=== PATIENT | female | born 1995 | race Caucasian/White ===

== ENCOUNTER 2017-01-24 13:10 | Emergency (ER) | payer OTHER ==
--- NOTE | 2017-01-24 14:50 | DIAGNOSTIC IMAGING REPORT ---
PROCEDURE: CT ABD/PELVIS WITH CONTRAST CLINICAL INDICATION: Right lower quadrant pain x 2 days. TECHNIQUE: 125 ml of Isovue 300 were injected intravenously and axial images were obtained of the entire abdomen and pelvis with sagittal and coronal reformations. COMPARISON: None. FINDINGS: ABDOMEN: Lung base are clear. Heart size is normal. Liver, gallbladder, pancreas, spleen, adrenal glands and right kidney are normal. Small left renal cysts. Normal abdominal aorta. Nonspecific bowel gas pattern. PELVIS: Normal appendix. IUD in place. Normal adnexa and bladder. Trace free fluid, physiologic. Bilateral L5 spondylolysis and grade 1 L5-S1 anterolisthesis. IMPRESSION: 1. Normal appendix 2. IUD in place 3. Trace free fluid the pelvis which may be the result of an occult ruptured ovarian follicle 4. Results discussed with Dr. Posada. All CT scans at this facility use dose modulation, iterative reconstruction, and/or weight-based dosing when appropriate to reduce radiation dose to as low as reasonably achievable.
--- NOTE | 2017-01-24 14:57 | ED ORDER SUMMARY ---
..... Patient: SANAZ SUMNER OrderSheet [facility] VisitID: [id number] [address] [place] [address] 22y, F Registration Date/Time: 01/24/2017 ORDER SHEET Weight: 68.0 kg (stated) Allergies: Tramadol GENERAL ORDERS: CT Abd/Pel w Cont (No) (N/A) (RLQ pain X 2 days) Urgent (13:33 01/24/2017 JCoates) (Ack 13:41 Raymundonandez) (17:05 KKnebel R.N.) CBC w Diff Urgent (13:35 01/24/2017 JCoates) (Ack 13:41 Raymundonandez) (13:55 KKnebel R.N.) CMP Urgent (13:35 01/24/2017 JCoates) (Ack 13:41 Raymundonandez) (13:55 KKnebel R.N.) Urine Urgent (13:35 01/24/2017 JCoates) (Ack 13:41 Raymundonandez) (13:55 KKnebel R.N.) Urine Drug Screen Urgent (13:35 01/24/2017 JCoates) (Ack 13:41 OHyumikonandez) (13:55 KKnebel R.N.) UA-Culture if indicated Urgent (13:35 01/24/2017 JCoates) (Ack 13:41 Raymundonandez) (13:55 KKnebel R.N.) NPO (13:35 01/24/2017 JCoates) (Ack 13:45 Raymundonandez) (13:55 KKnebel R.N.) MEDICATION ORDERS: IV FLUIDS: IV NS with Normal Saline 1 Liter: initial bolus 1000 mL (1000 mL/hr), then 1000 mL/hr for X1 (NOW) (13:34 01/24/2017 JCoates) (13:56 KKnebel R.N.) Zofran IV 8 mg (NOW) (13:34 01/24/2017 JCoates) (13:56 KKnebel R.N.) Dilaudid IV 0.5 mg (NOW) (13:35 01/24/2017 JCoates) (13:56 KKnebel R.N.) ORDER SHEET NOTES: [Electronically signed by Yumiko Gray R.N. (17:01/24/2017)] [Electronically signed by Uli Posada (17:01/24/2017)] [Electronically locked/signed by Yumiko Gray R.N. (17:01/24/2017)]
--- NOTE | 2017-01-24 14:57 | ED NURSING NOTES ---
Clinical Report - Nurses [facility] [address] [place] [address] 01/24/2017 13:12 Patient: SANAZ SUMNER TRIAGE Triage time 13:Jan 24 2017. Acuity: LEVEL 3. Chief Complaint: ABDOMINAL PAIN. Alert. No acute distress. SEPSIS SCREEN: Sepsis Screen. Negative (no infection suspected/documented). WILLIAN COMA SCORE: Willian Coma Scale: 15- eyes open spontaneously (4); best verbal response- oriented x 4 (5); best motor response- obeys commands (6). --13:34 Yumiko Gray R.N. 13:29 01/24/17. BP: 119/86. HR: 73. RR: 12. O2 saturation: 96%. Temp: 98.1 F. Pain level now: 03/17. --13:34 Yumiko Gray R.N. Weight: 68 kg stated. Height/Length: 67 inches Per Patient. BMI: 23.5. --13:32 Yumiko Gray R.N. Medications Gabapentin Oral. --13:30 Yumiko Gray R.N. Medication/allergy information source: the patient. --13:34 Yumiko Gray R.N. Allergies Tramadol. --13:32 Yumiko Gray R.N. History Arrived by private vehicle. Historian: patient. Onset. (about 2 days ago). She has had nausea, vomiting and diarrhea. Treatment LAST SAWYER: None. PAST MEDICAL HX: Immunizations: up-to-date. Last normal menstrual period- December 30 2016. SOCIAL HX: Never smoker. Occasional alcohol use. No drug use. No recent travel. No infectious disease exposure. No known contact with a sick individual. SELF HARM ASSESSMENT: A self harm assessment was performed. The patient answered "no" to the question "Do you have thoughts of harming or killing yourself?". FALL RISK ASSESSMENT: Fall risk assessment completed. No fall risk identified. NUTRITIONAL RISK ASSESSMENT: The nutritional risk assessment revealed no deficiencies. FUNCTIONAL ASSESSMENT: Functional assessment: no impairments noted. LEARNING NEEDS ASSESSMENT: The learning needs assessment revealed no barriers. ABUSE ASSESSMENT: Abuse assessment: The patient was asked "Do you feel safe in your home?". SKIN INTEGRITY ASSESSMENT: Skin integrity risk assessment completed. No skin integrity risk identified. --13:34 Yumiko Gray R.N. PROBLEMS: Back Pain. --13:32 Yumiko Gray R.N. Interventions ID and allergy band on patient. To room. --13:34 Yumiko Gray R.N. PHYSICAL ASSESSMENT GENERAL / NEURO / PSYCH: Alert. Oriented X 4. Appears in pain. RESPIRATORY: Respirations not labored. CVS: Capillary refill less than 2 seconds. GI / : Abdomen soft. Abdominal tenderness in the right upper quadrant and right side of the abdomen. SKIN: Skin is warm and dry. --13:35 Yumiko Gray R.N. NURSING PROGRESS NOTES Patient gowned. Head of bed elevated. Two patient identifiers checked. Call light placed in reach. Side rails up x 1. Bed placed in lowest position. Brakes of bed on. --13:35 Yumiko Gray R.N. 13:50 01/24/2017 Site #1 started via IV in the left antecubital space with an 20g angiocath, with aseptic technique and good blood return; one attempt. Blood drawn: rainbow set. Labeled in the presence of the patient and sent to the lab. Saline lock flushed with 10 mL saline. --13:55 Yumiko Gray R.N. 13:51 01/24/2017 Started bag #1 1000 mL IV Fluids IV NS (Saline); bolus of 1000 mL over 1 hour(s) via site #1 via IV pump. Allergies verified and confirmed 5 rights. IV patency established. IV site checked: no pain, redness, or swelling. IV flushed thoroughly pre- and post-medication administration. --13:56 Yumiko Gray R.N. 13:51 01/24/2017 Zofran (Ondansetron HCl) IVP 8 mg given over 2 minute(s) via site #1. Allergies verified and confirmed 5 rights. IV patency established. IV site checked: no pain, redness, or swelling. IV flushed thoroughly pre- and post-medication administration. --13:56 Yumiko Gray R.N. 13:51 01/24/2017 Dilaudid (HYDROmorphone HCl PF) IVP 0.5 mg given over 2 minute(s) via site #1. Allergies verified, confirmed 5 rights and sedative warning given to the patient. IV patency established. IV site checked: no pain, redness, or swelling. IV flushed thoroughly pre- and post-medication administration. --13:56 Yumiko Gray R.N. DISPOSITION / DISCHARGE 16:02 01/24/2017 Site #1 removed upon discharge. Bandage applied. --16:02 Yumiko Gray R.N. Departure time: 16:Jan 24 2017. Condition at departure: improved. No learning barriers present. Discharge instructions provided and reviewed with the patient. Reviewed medication(s) side effects, precautions, dosing and course information. Prescription(s) given to the patient. Reviewed referral to a primary care physician. Patient verbalized understanding. Written instructions provided in Kyrgyz. The patient was discharged home. She left the Emergency Department ambulatory and via private vehicle. Patient driving. FALL RISK ASSESSMENT: Fall risk assessment completed. No fall risk identified. --16:03 Yumiko Gray R.N. 16:02 01/24/17. BP: 106/83. HR: 62. RR: 16. O2 saturation: 97%. Pain level now: 12/16. --16:03 Yumiko Gray R.N. Locked/Released at 01/24/2017 17:05 by Yumiko Gray R.N.
--- NOTE | 2017-01-24 14:57 | ED CLINICAL REPORT ---
Clinical Report - Physicians/Mid Levels [facility] [address] [place] [address] 01/24/2017 13:12 Patient: SANAZ SUMNER Time Seen: 13:Jan 24 2017; initial patient contact. Arrived- By private vehicle. Historian- patient. HISTORY OF PRESENT ILLNESS Chief Complaint: ABDOMINAL PAIN and VOMITING, DIARRHEA and NAUSEA. At its maximum, severity described as severe. It is described as "pain". No radiation. It is described as located in the right abdomen and right lower quadrant. This started about 2 1/2 days ago and is still present and worsening. It was abrupt in onset and has been constant. The patient has had nausea, loss of appetite, vomiting and diarrhea. No additional abdominal pain. (Patient says symptoms started 3 days ago while she was at work. Pain lasted for about 6 hours and then seemed to go away. However, the next day when she woke up symptoms return. They've progressively gotten worse to the point where it hurts when she bends overor moves. She says the pain has been severe enough to cause her to. She's had a little bit of diarrhea but no constipation. Denies any pain with urination or increased urinary frequency. No history of gallbladder disease or kidney stones.). Similar symptoms previously: None. Recent medical care: Not recently seen/assessed. REVIEW OF SYSTEMS No constipation, hematemesis, difficulty with urination, pain with urination or bloody stools. No joint pain, skin rash or chills. Denies current . She has had fever. All systems otherwise negative, except as recorded above. PAST HISTORY See nurses notes. No history of heart disease, lung disease, hypertension or diabetes mellitus. SOCIAL HISTORY Never smoker. Alcohol use. FAMILY HISTORY No family history of gall bladder problems. ADDITIONAL NOTES The nursing notes have been reviewed. PHYSICAL EXAM Appearance: Alert. Oriented X3. She appears uncomfortable, appears older than stated age and is well hydrated but not ill appearing or toxic appearing. She has normal color. Eyes: Pupils equal, round and reactive to light. Eyes normal inspection. ENT: Nose normal. Pharynx normal. Neck: Normal inspection. Neck supple. No JVD or lymphadenopathy. CVS: Normal heart rate and rhythm. Heart sounds normal. Respiratory: No respiratory distress. Breath sounds normal. Abdomen: Soft. Moderate tenderness in the right side of the abdomen and right lower quadrant with guarding present. Positive psoas sign. No rebound tenderness or Duff's or obturator sign present. Back: Normal inspection. No CVA tenderness. Skin: Skin warm and dry. No rash. Extremities: Extremities exhibit normal ROM. No lower extremity edema. Neuro: Oriented X 3. No motor deficit. No sensory deficit. LABS, X-RAYS, AND EKG Abdominal CT: Free fluid is present. Normal liver and kidneys. Uterus normal. Bladder normal. Appendix normal. No mass. IUD in place. Study type: abdomen and pelvis. Abdominal CT performed with IV contrast. The study was discussed with the radiologist. Interpretation time: 14:49 Jan 24 2017. Laboratory Tests: UA-Culture if indicated: (BORIS: 01/24/2017 13:45) ( [facility] 01/24/2017 14:28) Final results Test Result Flag Units (Reference) URINE COLOR YELLOW URINE APPEARANCE CLEAR URINE GLUCOSE NEGATIVE (NEGATIVE) URINE BILIRUBIN NEGATIVE (NEGATIVE) URINE KETONE 1+ (NEGATIVE) URINE SPECIFIC GRAVITY 1.025 (1.010-1.030) URINE PH 6.0 (5.0-8.0) URINE PROTEIN NEGATIVE (NEGATIVE) URINE UROBILINOGEN 0.2 EU/dL (0.2-1.0) URINE NITRITE NEGATIVE (NEGATIVE) URINE BLOOD 1+ (NEGATIVE) URINE LEUK ESTERASE NEGATIVE (NEGATIVE) URINE RBC 3-5 rbc/hpf (0-1) URINE WBC NONE SEEN wbc/hpf (0-1) URINE EPITHELIAL CELLS 3-5 EPI/hpf (0-5) URINE BACTERIA NONE SEEN (NONE SEEN) URINE COMMENT CULT NOT INDICATED URINE CULTURES ARE SET-UP BASED ON THE FOLLOWING CRITERIA:POSITIVE NITRITEPOSITIVE LEUKOCYTE ESTERASEGREATER THAN 10 WHITE BLOOD CELLSMODERATE (2+) OR GREATER BACTERIA Urine: (BORIS: 01/24/2017 13:45) ( [facility] 01/24/2017 14:04) Final results Test Result Flag Units (Reference) URINE NEGATIVE CBC w Diff: (BORIS: 01/24/2017 13:50) ( MsgRcvd 01/24/2017 14:01) Final results Test Result Flag Units (Reference) WHITE BLOOD COUNT 8.4 K/uL (4.5-11.5) RED BLOOD COUNT 4.59 M/uL (4.00-5.20) HEMOGLOBIN 13.4 gm/dL (12.0-16.0) HEMATOCRIT 40.2 % (36.0-46.0) MEAN CELL VOLUME 88 fL (80-100) MEAN CORPUSCULAR HGB 29 pg (26-34) MEAN CORPUSCULAR HGB CONC 33 g/dL (31-37) RED CELL DISTRIBUTION WIDTH 12.5 % (11.6-14.8) PLATELET COUNT 287 K/uL (150-400) NEUTROPHIL % 61.5 % (50-75) LYMPH % 29.7 % (25-40) MONO % 7.2 % (3-14) EOSINOPHIL % 1.3 % (0-4) BASOPHIL % 0.3 % (0-2) Urine Drug Screen: (BORIS: 01/24/2017 13:45) ( MsgRcvd 01/24/2017 14:19) Final results Test Result Flag Units (Reference) AMPHETAMINE/METHAMPHETAMINE NEGATIVE (NEGATIVE) BARBITURATE NEGATIVE (NEGATIVE) BENZODIAZEPINE NEGATIVE (NEGATIVE) CANNABINOID POSITIVE H (NEGATIVE) COCAINE NEGATIVE (NEGATIVE) ECSTASY NEGATIVE (NEGATIVE) METHADONE NEGATIVE (NEGATIVE) OPIATE NEGATIVE (NEGATIVE) The urine drug screen is a qualitative screening test fordrug overdose and abuse. All screen results should beconsidered as presumptive.Drugs screened for are as follows:BenzodiazepinesCocaineAmphetamines/MetamphetaminesTHC (Tetrahydrocannabinol)OpiatesBarbituratesEcstasyMethadonePositive results are unconfirmed. For confirmation, notifythe lab for the specimen to be sent to the reference lab.All confirmations must be performed by a differentmethodology.The ingestion of natural herbal and plant productscontaining Ephedra/Ephedra metabolites can produce in urineone or more substances capable of cross reacting withamphetamine/methamphetamine immunoassays. These testsprovide a preliminary result only. A more specificalternative chemical method must be used to obtain aconfirmed analytical result. CMP: (BORIS: 01/24/2017 13:50) ( MsgRcvd 01/24/2017 14:27) Final results Test Result Flag Units (Reference) GLUCOSE 83 mg/dL (70-110) BUN 10 mg/dL (7-18) CREATININE 0.7 mg/dL (0.6-1.3) Estimated GFR >60 mL/min Estimated GFR- >60 mL/min Note: Persistent reduction over 3 months in eGFR<60 mL/min/1.73 m2 defines CKD. Patients with eGFR values>=60 mL/min/1.73 m2 may also have CKD if evidence ofpersistent proteinuria. Additional information may be foundat www.kidney.org. SODIUM 141 mmol/L (136-145) POTASSIUM 3.7 mmol/L (3.5-5.1) CHLORIDE 104 mmol/L (98-107) CARBON DIOXIDE 25 mmol/L (21-32) CALCIUM 8.9 mg/dL (8.5-10.1) TOTAL PROTEIN 7.5 g/dL (6.4-8.2) ALBUMIN 4.3 g/dL (3.3-5.0) BILIRUBIN, TOTAL 0.8 mg/dL (0.0-1.0) ALKALINE PHOSPHATASE 61 U/L (46-116) AST (SGOT) 32 U/L (15-37) ALT (SGPT) 47 U/L (12-78) . PROGRESS AND PROCEDURES Course of Care: 13:39 01/24/17. Patient stable. Moderate tenderness in the right lower quadrant. Symptoms persisted so will get CT abdomen with contrast. Patient placed nothing by mouth. 14:53 01/24/17. Labs and CT essentially normal. Discussed possibility of ruptured ovarian cyst with patient. We'll give pain control and rest at home for the next 72 hours. Follow-up with [facility] in about a week if pain persists. Return here sooner if fever, vomiting or worsening pain. Discharge decision based on the following: patient's condition is stable; patient is ambulatory; patient is active; patient's pain is controlled; patient's exam is stable; no seriously abnormal test results; improving condition on multiple repeat evaluations; social support is good; follow-up is available; clinical impression is consistent with outpatient treatment. CLINICAL IMPRESSION Acute right lower quadrant abdominal pain. Vomiting with nausea. Not intractable. Probable ruptured right ovarian cyst. INSTRUCTIONS Rest at home for three days until better. Do not work for three days. Drink plenty of fluids. No dietary restrictions. Warnings: SEDATIVE MEDICATION: You were given sedative medication during your visit. Do not drive or operate dangerous machinery. CONTROLLED SUBSTANCE WARNINGS. GENERAL WARNINGS: Return or contact your physician immediately if your condition worsens or changes unexpectedly, if not improving as expected, or if other problems arise. SPECIFICALLY, return if you develop fever, vomiting or the inability to keep fluids down. Prescription Medications: [place] 5 mg / 325 mg tablets: take 1 orally every 6 hours as needed for pain. Dispense ten (10). No refill. Substitution is permissible. Zofran ODT 8 mg: take 1 orally every 8 hours as needed for nausea and vomiting. Dispense ten (10). No refill. Substitution is permissible. OTC Medications: Docusate Sodium: (available over the counter) take according to label instructions. Follow-up: Follow up with your doctor in four days if not well. Understanding of the discharge instructions verbalized by patient. (Electronically signed by Uli Posada, 01/24/2017 17:28)
--- NOTE | 2017-01-24 14:57 | ED ORDER SUMMARY ---
..... Patient: SANAZ SUMNER OrderSheet [facility] VisitID: [id number] [address] [place] [address] 22y, F Registration Date/Time: 01/24/2017 ORDER SHEET Weight: 68.0 kg (stated) Allergies: Tramadol GENERAL ORDERS: CT Abd/Pel w Cont (No) (N/A) (RLQ pain X 2 days) Urgent (13:33 01/24/2017 JCoates) (Ack 13:41 Raymundonandez) (17:05 KKnebel R.N.) CBC w Diff Urgent (13:35 01/24/2017 JCoates) (Ack 13:41 Raymundonandez) (13:55 KKnebel R.N.) CMP Urgent (13:35 01/24/2017 JCoates) (Ack 13:41 Raymundonandez) (13:55 KKnebel R.N.) Urine Urgent (13:35 01/24/2017 JCoates) (Ack 13:41 Raymundonandez) (13:55 KKnebel R.N.) Urine Drug Screen Urgent (13:35 01/24/2017 JCoates) (Ack 13:41 OHyumikonandez) (13:55 KKnebel R.N.) UA-Culture if indicated Urgent (13:35 01/24/2017 JCoates) (Ack 13:41 Raymundonandez) (13:55 KKnebel R.N.) NPO (13:35 01/24/2017 JCoates) (Ack 13:45 Raymundonandez) (13:55 KKnebel R.N.) MEDICATION ORDERS: IV FLUIDS: IV NS with Normal Saline 1 Liter: initial bolus 1000 mL (1000 mL/hr), then 1000 mL/hr for X1 (NOW) (13:34 01/24/2017 JCoates) (13:56 KKnebel R.N.) Zofran IV 8 mg (NOW) (13:34 01/24/2017 JCoates) (13:56 KKnebel R.N.) Dilaudid IV 0.5 mg (NOW) (13:35 01/24/2017 JCoates) (13:56 KKnebel R.N.) ORDER SHEET NOTES: [Electronically signed by Yumiko Gray R.N. (17:01/24/2017)] [Electronically signed by Uli Posada (17:01/24/2017)] [Electronically locked/signed by Yumiko Gray R.N. (17:01/24/2017)]
--- NOTE | 2017-01-24 17:29 | ED MAR SUMMARY ---
..... Medication Administration Record [facility] [address] [place] [address] Patient: SANAZ SUMNER Visit ID: [id number] 22y, F Weight: 68.0 kg Height/Length: 67 in BMI: 23.5 ALLERGIES: Tramadol Start 13:01/24/2017 Yumiko Gray R.N. Medication Administered: IV NS (SALINE), Dose: IV Fluids, Bolus: 1000 mL over 1 hour(s), Dispensed: 1000 mL bag, Site: #1 left AC. Medication Ordered: IV NS with Normal Saline 1 Liter: initial bolus 1000 mL (1000 mL/hr), then 1000 mL/hr for X1 (NOW). Given 13:01/24/2017 Yumiko Gray R.N. Medication Administered: ZOFRAN [IVP] (ONDANSETRON HCL), Dose: 8 mg IVP over 2 minute(s), Site: #1 left AC. Medication Ordered: Zofran IV 8 mg (NOW). Given 13:01/24/2017 Yumiko Gray R.N. Medication Administered: DILAUDID [IVP] (HYDROMORPHONE HCL PF), Dose: 0.5 mg IVP over 2 minute(s), Site: #1 left AC. Medication Ordered: Dilaudid IV 0.5 mg (NOW).
--- NOTE | 2017-01-24 17:29 | ED MED RECONCILIATION SUMMARY ---
Patient: SANAZ SUMNER Medication Reconciliation Report [facility] VisitID: [id number] [address] [place] [address] 22y, F Registration Date/Time: 01/24/2017 Weight: 68.0 kg Height/Length: 67 in. BMI: 23.5 ALLERGIES: Tramadol The patient's Home Medications are listed below: THE FOLLOWING MEDICATIONS NEED TO BE RECONCILED: Gabapentin Oral The source(s) of the original Home Medication information: patient The following Medications were given to the patient in the Emergency Department: IV NS IV Fluids bolus 1000 mL over 1 hour(s), administered: 01/24/2017 1:51:00 PM Zofran [IVP] IVP 8 mg, administered: 01/24/2017 1:51:00 PM Dilaudid [IVP] IVP 0.5 mg, administered: 01/24/2017 1:51:00 PM The following Medications were prescribed to the patient: [place] 5 mg / 325 mg tablets: take 1 orally every 6 hours as needed for pain. Dispense ten (10). No refill. Substitution is permissible. -- Uli Posada Zofran ODT 8 mg: take 1 orally every 8 hours as needed for nausea and vomiting. Dispense ten (10). No refill. Substitution is permissible. -- Uli Posada Docusate Sodium: (available over the counter) take according to label instructions. -- Uli Posada
--- NOTE | 2017-01-24 17:29 | ED MAR SUMMARY ---
..... Medication Administration Record [facility] [address] [place] [address] Patient: SANAZ SUMNER Visit ID: [id number] 22y, F Weight: 68.0 kg Height/Length: 67 in BMI: 23.5 ALLERGIES: Tramadol Start 13:01/24/2017 Yumiko Gray R.N. Medication Administered: IV NS (SALINE), Dose: IV Fluids, Bolus: 1000 mL over 1 hour(s), Dispensed: 1000 mL bag, Site: #1 left AC. Medication Ordered: IV NS with Normal Saline 1 Liter: initial bolus 1000 mL (1000 mL/hr), then 1000 mL/hr for X1 (NOW). Given 13:01/24/2017 Yumiko Gray R.N. Medication Administered: ZOFRAN [IVP] (ONDANSETRON HCL), Dose: 8 mg IVP over 2 minute(s), Site: #1 left AC. Medication Ordered: Zofran IV 8 mg (NOW). Given 13:01/24/2017 Yumiko Gray R.N. Medication Administered: DILAUDID [IVP] (HYDROMORPHONE HCL PF), Dose: 0.5 mg IVP over 2 minute(s), Site: #1 left AC. Medication Ordered: Dilaudid IV 0.5 mg (NOW).
--- NOTE | 2017-01-24 17:29 | ED MED RECONCILIATION SUMMARY ---
Patient: SANAZ SUMNER Medication Reconciliation Report [facility] VisitID: [id number] [address] [place] [address] 22y, F Registration Date/Time: 01/24/2017 Weight: 68.0 kg Height/Length: 67 in. BMI: 23.5 ALLERGIES: Tramadol The patient's Home Medications are listed below: THE FOLLOWING MEDICATIONS NEED TO BE RECONCILED: Gabapentin Oral The source(s) of the original Home Medication information: patient The following Medications were given to the patient in the Emergency Department: IV NS IV Fluids bolus 1000 mL over 1 hour(s), administered: 01/24/2017 1:51:00 PM Zofran [IVP] IVP 8 mg, administered: 01/24/2017 1:51:00 PM Dilaudid [IVP] IVP 0.5 mg, administered: 01/24/2017 1:51:00 PM The following Medications were prescribed to the patient: [place] 5 mg / 325 mg tablets: take 1 orally every 6 hours as needed for pain. Dispense ten (10). No refill. Substitution is permissible. -- Uli Posada Zofran ODT 8 mg: take 1 orally every 8 hours as needed for nausea and vomiting. Dispense ten (10). No refill. Substitution is permissible. -- Uli Posada Docusate Sodium: (available over the counter) take according to label instructions. -- Uli Posada
--- NOTE | 2017-01-24 17:29 | ED DISCHARGE INSTRUCTIONS ---
Patient: SANAZ SUMNER General Instructions [facility] VisitID: [id number] [place] [address] 22y, F Registration Date/Time: 01/24/2017 Acute right lower quadrant abdominal pain. Vomiting with nausea. Not intractable. Probable ruptured right ovarian cyst. INSTRUCTIONS Rest at home for three days until better. Do not work for three days. Drink plenty of fluids. No dietary restrictions. Warnings: SEDATIVE MEDICATION: You were given sedative medication during your visit. Do not drive or operate dangerous machinery. CONTROLLED SUBSTANCE WARNINGS. GENERAL WARNINGS: Return or contact your physician immediately if your condition worsens or changes unexpectedly, if not improving as expected, or if other problems arise. SPECIFICALLY, return if you develop fever, vomiting or the inability to keep fluids down. Prescription Medications: [place] 5 mg / 325 mg tablets: take 1 orally every 6 hours as needed for pain. Dispense ten (10). No refill. Substitution is permissible. Zofran ODT 8 mg: take 1 orally every 8 hours as needed for nausea and vomiting. Dispense ten (10). No refill. Substitution is permissible. OTC Medications: Docusate Sodium: (available over the counter) take according to label instructions. Follow-up: Follow up with your doctor in four days if not well. Understanding of the discharge instructions verbalized by patient. ADDITIONAL INFORMATION Ovarian Cyst The ovary is a small organ located on each side of the uterus. During each menstrual cycle a tiny egg sac forms in the ovary. If the egg is released but does not occur, this sac usually dissolves. Sometimes, the sac may fill with fluid. It then enlarges into a painful cyst. Usually the cyst will rupture or shrink on its own. In either case, the pain gradually goes away over the next 1-3 days. If the cyst does not shrink or rupture, it may cause continued pain. Home Care: Rest in bed and avoid heavy exertion until you are feeling better. Heat to the lower abdomen usually helps (heating pad or hot packs -- a small towel soaked in hot water). You may use acetaminophen (Tylenol) or ibuprofen (Motrin, Advil) to control pain, unless another pain medicine was prescribed. [NOTE: If you have chronic liver or kidney disease or ever had a stomach ulcer or GI bleeding, talk with your doctor before using these medicines.] Follow Up: See your doctor within the next 2-3 days if your pain doesnt improve. Otherwise, follow up with your doctor after your next period or as directed by our staff. Get Prompt Medical Attention if any of the following occur: Pain worsens or fails to respond to the above measures Fever of 100.4F (38C) or higher, or as directed by your healthcare provider Heavy vaginal bleeding (soaking one pad an hour for three hours) You feel weak or dizzy Fainting Passage of a pink or oropeza tissue with menstrual bleeding Hydrocodone Bitartrate, Acetaminophen Oral tablet What is this medicine? ACETAMINOPHEN; HYDROCODONE (a set a FILIPPO gaby fen; jaycee droe KOE done) is a pain reliever. It is used to treat mild to moderate pain. How should I use this medicine? Take this medicine by mouth. Swallow it with a full glass of water. Follow the directions on the prescription label. If the medicine upsets your stomach, take the medicine with food or milk. Do not take more than you are told to take. Talk to your mailing machine helper regarding the use of this medicine in children. This medicine is not approved for use in children. What side effects may I notice from receiving this medicine? Side effects that you should report to your doctor or health caregiver assisted living as soon as possible: allergic reactions like skin rash, itching or hives, swelling of the face, lips, or tongue breathing problems confusion feeling faint or lightheaded, falls stomach pain yellowing of the eyes or skin Side effects that usually do not require medical attention (report to your doctor or health caregiver assisted living if they continue or are bothersome): nausea, vomiting stomach upset What may interact with this medicine? alcohol antihistamines isoniazid medicines for depression, anxiety, or psychotic disturbances medicines for sleep muscle relaxants naltrexone narcotic medicines (opiates) for pain phenobarbital ritonavir tramadol What if I miss a dose? If you miss a dose, take it as soon as you can. If it is almost time for your next dose, take only that dose. Do not take double or extra doses. Where should I keep my medicine? Keep out of the reach of children. This medicine can be abused. Keep your medicine in a safe place to protect it from theft. Do not share this medicine with anyone. Selling or giving away this medicine is dangerous and against the law. Store at room temperature between 15 and 30 degrees C (59 and 86 degrees F). Protect from light. Keep container tightly closed. Throw away any unused medicine after the expiration date. Discard unused medicine and used packaging carefully. Pets and children can be harmed if they find used or lost packages. What should I tell my health care provider before I take this medicine? They need to know if you have any of these conditions: brain tumor Crohn's disease, inflammatory bowel disease, or ulcerative colitis drink more than 3 alcohol-containing drinks per day drug abuse or addiction head injury heart or circulation problems kidney disease or problems going to the bathroom liver disease lung disease, asthma, or breathing problems an unusual or allergic reaction to acetaminophen, hydrocodone, other opioid analgesics, other medicines, foods, dyes, or preservatives or trying to get breast-feeding What should I watch for while using this medicine? Tell your doctor or health caregiver assisted living if your pain does not go away, if it gets worse, or if you have new or a different type of pain. You may develop tolerance to the medicine. Tolerance means that you will need a higher dose of the medicine for pain relief. Tolerance is normal and is expected if you take the medicine for a long time. Do not suddenly stop taking your medicine because you may develop a severe reaction. Your body becomes used to the medicine. This does NOT mean you are addicted. Addiction is a behavior related to getting and using a drug for a non-medical reason. If you have pain, you have a medical reason to take pain medicine. Your doctor will tell you how much medicine to take. If your doctor wants you to stop the medicine, the dose will be slowly lowered over time to avoid any side effects. You may get drowsy or dizzy when you first start taking the medicine or change doses. Do not drive, use machinery, or do anything that may be dangerous until you know how the medicine affects you. Stand or sit up slowly. There are different types of narcotic medicines (opiates) for pain. If you take more than one type at the same time, you may have more side effects. Give your health care provider a list of all medicines you use. Your doctor will tell you how much medicine to take. Do not take more medicine than directed. Call emergency for help if you have problems breathing. The medicine will cause constipation. Try to have a bowel movement at least every 2 to 3 days. If you do not have a bowel movement for 3 days, call your doctor or health caregiver assisted living. Too much acetaminophen can be very dangerous. Do not take Tylenol (acetaminophen) or medicines that contain acetaminophen with this medicine. Many non-prescription medicines contain acetaminophen. Always read the labels carefully. Ondansetron Oral disintegrating tablet What is this medicine? ONDANSETRON (on LINDA se elvira) is used to treat nausea and vomiting caused by chemotherapy. It is also used to prevent or treat nausea and vomiting after surgery. How should I use this medicine? These tablets are made to dissolve in the mouth. Do not try to push the tablet through the foil backing. With dry hands, peel away the foil backing and gently remove the tablet. Place the tablet in the mouth and allow it to dissolve, then swallow. While you may take these tablets with water, it is not necessary to do so. Talk to your mailing machine helper regarding the use of this medicine in children. Special care may be needed. What side effects may I notice from receiving this medicine? Side effects that you should report to your doctor or health caregiver assisted living as soon as possible: allergic reactions like skin rash, itching or hives, swelling of the face, lips, or tongue breathing problems dizziness fast or irregular heartbeat feeling faint or lightheaded, falls fever and chills swelling of the hands and feet tightness in the chest Side effects that usually do not require medical attention (report to your doctor or health caregiver assisted living if they continue or are bothersome): constipation or diarrhea headache What may interact with this medicine? Do not take this medicine with any of the following medications: -apomorphine -cisapride -dofetilide -dronedarone -pimozide -thioridazine -ziprasidone This medicine may also interact with the following medications: -carbamazepine -phenytoin -rifampicin -tramadol -other medicines that prolong the QT interval (cause an abnormal heart rhythm) What if I miss a dose? If you miss a dose, take it as soon as you can. If it is almost time for your next dose, take only that dose. Do not take double or extra doses. Where should I keep my medicine? Keep out of the reach of children. Store between 2 and 30 degrees C (36 and 86 degrees F). Throw away any unused medicine after the expiration date. What should I tell my health care provider before I take this medicine? They need to know if you have any of these conditions: heart disease history of irregular heartbeat liver disease low levels of magnesium or potassium in the blood an unusual or allergic reaction to ondansetron, granisetron, other medicines, foods, dyes, or preservatives or trying to get breast-feeding What should I watch for while using this medicine? Check with your doctor or health caregiver assisted living as soon as you can if you have any sign of an allergic reaction. You have been given the following additional information: Ovarian Cyst Hydrocodone Bitartrate, Acetaminophen Oral tablet Ondansetron Oral disintegrating tablet Rest at home for three days until better. Do not work for three days. (Electronically signed by Uli Posada, 01/24/2017 17:28)
--- NOTE | 2017-01-24 17:29 | ED DISCHARGE INSTRUCTIONS ---
Patient: SANAZ SUMNER General Instructions [facility] VisitID: [id number] [place] [address] 22y, F Registration Date/Time: 01/24/2017 Acute right lower quadrant abdominal pain. Vomiting with nausea. Not intractable. Probable ruptured right ovarian cyst. INSTRUCTIONS Rest at home for three days until better. Do not work for three days. Drink plenty of fluids. No dietary restrictions. Warnings: SEDATIVE MEDICATION: You were given sedative medication during your visit. Do not drive or operate dangerous machinery. CONTROLLED SUBSTANCE WARNINGS. GENERAL WARNINGS: Return or contact your physician immediately if your condition worsens or changes unexpectedly, if not improving as expected, or if other problems arise. SPECIFICALLY, return if you develop fever, vomiting or the inability to keep fluids down. Prescription Medications: [place] 5 mg / 325 mg tablets: take 1 orally every 6 hours as needed for pain. Dispense ten (10). No refill. Substitution is permissible. Zofran ODT 8 mg: take 1 orally every 8 hours as needed for nausea and vomiting. Dispense ten (10). No refill. Substitution is permissible. OTC Medications: Docusate Sodium: (available over the counter) take according to label instructions. Follow-up: Follow up with your doctor in four days if not well. Understanding of the discharge instructions verbalized by patient. ADDITIONAL INFORMATION Ovarian Cyst The ovary is a small organ located on each side of the uterus. During each menstrual cycle a tiny egg sac forms in the ovary. If the egg is released but does not occur, this sac usually dissolves. Sometimes, the sac may fill with fluid. It then enlarges into a painful cyst. Usually the cyst will rupture or shrink on its own. In either case, the pain gradually goes away over the next 1-3 days. If the cyst does not shrink or rupture, it may cause continued pain. Home Care: Rest in bed and avoid heavy exertion until you are feeling better. Heat to the lower abdomen usually helps (heating pad or hot packs -- a small towel soaked in hot water). You may use acetaminophen (Tylenol) or ibuprofen (Motrin, Advil) to control pain, unless another pain medicine was prescribed. [NOTE: If you have chronic liver or kidney disease or ever had a stomach ulcer or GI bleeding, talk with your doctor before using these medicines.] Follow Up: See your doctor within the next 2-3 days if your pain doesnt improve. Otherwise, follow up with your doctor after your next period or as directed by our staff. Get Prompt Medical Attention if any of the following occur: Pain worsens or fails to respond to the above measures Fever of 100.4F (38C) or higher, or as directed by your healthcare provider Heavy vaginal bleeding (soaking one pad an hour for three hours) You feel weak or dizzy Fainting Passage of a pink or oropeza tissue with menstrual bleeding Hydrocodone Bitartrate, Acetaminophen Oral tablet What is this medicine? ACETAMINOPHEN; HYDROCODONE (a set a FILIPPO gaby fen; jaycee droe KOE done) is a pain reliever. It is used to treat mild to moderate pain. How should I use this medicine? Take this medicine by mouth. Swallow it with a full glass of water. Follow the directions on the prescription label. If the medicine upsets your stomach, take the medicine with food or milk. Do not take more than you are told to take. Talk to your instrumentation and control technician regarding the use of this medicine in children. This medicine is not approved for use in children. What side effects may I notice from receiving this medicine? Side effects that you should report to your doctor or health aged or disabled carer as soon as possible: allergic reactions like skin rash, itching or hives, swelling of the face, lips, or tongue breathing problems confusion feeling faint or lightheaded, falls stomach pain yellowing of the eyes or skin Side effects that usually do not require medical attention (report to your doctor or health aged or disabled carer if they continue or are bothersome): nausea, vomiting stomach upset What may interact with this medicine? alcohol antihistamines isoniazid medicines for depression, anxiety, or psychotic disturbances medicines for sleep muscle relaxants naltrexone narcotic medicines (opiates) for pain phenobarbital ritonavir tramadol What if I miss a dose? If you miss a dose, take it as soon as you can. If it is almost time for your next dose, take only that dose. Do not take double or extra doses. Where should I keep my medicine? Keep out of the reach of children. This medicine can be abused. Keep your medicine in a safe place to protect it from theft. Do not share this medicine with anyone. Selling or giving away this medicine is dangerous and against the law. Store at room temperature between 15 and 30 degrees C (59 and 86 degrees F). Protect from light. Keep container tightly closed. Throw away any unused medicine after the expiration date. Discard unused medicine and used packaging carefully. Pets and children can be harmed if they find used or lost packages. What should I tell my health care provider before I take this medicine? They need to know if you have any of these conditions: brain tumor Crohn's disease, inflammatory bowel disease, or ulcerative colitis drink more than 3 alcohol-containing drinks per day drug abuse or addiction head injury heart or circulation problems kidney disease or problems going to the bathroom liver disease lung disease, asthma, or breathing problems an unusual or allergic reaction to acetaminophen, hydrocodone, other opioid analgesics, other medicines, foods, dyes, or preservatives or trying to get breast-feeding What should I watch for while using this medicine? Tell your doctor or health aged or disabled carer if your pain does not go away, if it gets worse, or if you have new or a different type of pain. You may develop tolerance to the medicine. Tolerance means that you will need a higher dose of the medicine for pain relief. Tolerance is normal and is expected if you take the medicine for a long time. Do not suddenly stop taking your medicine because you may develop a severe reaction. Your body becomes used to the medicine. This does NOT mean you are addicted. Addiction is a behavior related to getting and using a drug for a non-medical reason. If you have pain, you have a medical reason to take pain medicine. Your doctor will tell you how much medicine to take. If your doctor wants you to stop the medicine, the dose will be slowly lowered over time to avoid any side effects. You may get drowsy or dizzy when you first start taking the medicine or change doses. Do not drive, use machinery, or do anything that may be dangerous until you know how the medicine affects you. Stand or sit up slowly. There are different types of narcotic medicines (opiates) for pain. If you take more than one type at the same time, you may have more side effects. Give your health care provider a list of all medicines you use. Your doctor will tell you how much medicine to take. Do not take more medicine than directed. Call emergency for help if you have problems breathing. The medicine will cause constipation. Try to have a bowel movement at least every 2 to 3 days. If you do not have a bowel movement for 3 days, call your doctor or health aged or disabled carer. Too much acetaminophen can be very dangerous. Do not take Tylenol (acetaminophen) or medicines that contain acetaminophen with this medicine. Many non-prescription medicines contain acetaminophen. Always read the labels carefully. Ondansetron Oral disintegrating tablet What is this medicine? ONDANSETRON (on LINDA se elvira) is used to treat nausea and vomiting caused by chemotherapy. It is also used to prevent or treat nausea and vomiting after surgery. How should I use this medicine? These tablets are made to dissolve in the mouth. Do not try to push the tablet through the foil backing. With dry hands, peel away the foil backing and gently remove the tablet. Place the tablet in the mouth and allow it to dissolve, then swallow. While you may take these tablets with water, it is not necessary to do so. Talk to your instrumentation and control technician regarding the use of this medicine in children. Special care may be needed. What side effects may I notice from receiving this medicine? Side effects that you should report to your doctor or health aged or disabled carer as soon as possible: allergic reactions like skin rash, itching or hives, swelling of the face, lips, or tongue breathing problems dizziness fast or irregular heartbeat feeling faint or lightheaded, falls fever and chills swelling of the hands and feet tightness in the chest Side effects that usually do not require medical attention (report to your doctor or health aged or disabled carer if they continue or are bothersome): constipation or diarrhea headache What may interact with this medicine? Do not take this medicine with any of the following medications: -apomorphine -cisapride -dofetilide -dronedarone -pimozide -thioridazine -ziprasidone This medicine may also interact with the following medications: -carbamazepine -phenytoin -rifampicin -tramadol -other medicines that prolong the QT interval (cause an abnormal heart rhythm) What if I miss a dose? If you miss a dose, take it as soon as you can. If it is almost time for your next dose, take only that dose. Do not take double or extra doses. Where should I keep my medicine? Keep out of the reach of children. Store between 2 and 30 degrees C (36 and 86 degrees F). Throw away any unused medicine after the expiration date. What should I tell my health care provider before I take this medicine? They need to know if you have any of these conditions: heart disease history of irregular heartbeat liver disease low levels of magnesium or potassium in the blood an unusual or allergic reaction to ondansetron, granisetron, other medicines, foods, dyes, or preservatives or trying to get breast-feeding What should I watch for while using this medicine? Check with your doctor or health aged or disabled carer as soon as you can if you have any sign of an allergic reaction. You have been given the following additional information: Ovarian Cyst Hydrocodone Bitartrate, Acetaminophen Oral tablet Ondansetron Oral disintegrating tablet Rest at home for three days until better. Do not work for three days. (Electronically signed by Uli Posada, 01/24/2017 17:28)
== END 2017-01-24 16:03 | disposition home or self-care (01) ==
LOC: ED SRH 13:10
DX: R10.31 Right lower quadrant pain (principal); R11.2 Nausea with vomiting, unspecified; Z88.8 Allergy status to other drugs, medicaments and biological substances
CPT/HCPCS: 90004; 90100; 92760; 92761; 92762; 92763; 92764; 92765; 92766; 92767; 93070; 95059